=== PATIENT | female | born 1970 | race Caucasian/White ===

== ENCOUNTER 2023-11-18 15:29 | Emergency (ER) | payer OTHER, SELFPAY ==
[2023-11-18 15:32] VITALS: BP 122/75
--- NOTE | 2023-11-18 16:39 | ED.GENMED ---
History of Present Illness
General
Chief Complaint: Headache
Source: patient
Exam Limitations: none
Time Seen by Provider: 11/18/23 16:02
Nursing documentation reviewed up to this point in time: agreed with
History of Present Illness
History of Present Illness:
Patient is a 53-year-old female with past medical history of Chiari malformation small brain aneurysm presents to the ER for evaluation. Patient reports on Thursday she has had a persistent left-sided temporal headache. She reports it is constantly
there in general but it does intensify. Because it has been persistent since Thursday and this is not her typical headaches she was sent by her family doctor. She reports she was diagnosed with Chiari malformation and had a neurosurgeon at [facility] [facility].
She had decompression surgery back in 2018. She has not seen her surgeon since then and does not have a neurologist. Since having the surgery she still get headaches but they are better than prior to having surgery. Normally her headaches
related to the Chiari malformation are to posterior occiput and this is a new type of headache for her. She feels a little lightheaded with headaches very mildly nauseous with a headache. She has noticed over the past several days that her vision
is mildly blurry at times she feels that she has to strain more to read words on a computer.
Currently she feels that the pain is just mild and dull.
Review of Systems
Review of Systems
Allergies reviewed?: Yes
All Other Systems: ROS reviewed and negative except as documented in HPI and ROS
Constitutional: Reports no symptoms; Denies fever, fatigue or chills
EENT: Reports no symptoms
Respiratory: Reports no symptoms
Cardiac: Reports no symptoms
ABD/GI: Reports nausea; Denies vomiting
Musculoskeletal: Reports no symptoms
Skin: Reports no symptoms
Neurological: Reports headache ( left sided headache ); Denies dizzy or weakness
Hematologic/Lymphatic: Reports no symptoms
Psychiatric: Reports no symptoms
Phy Exam
General Physical Exam
General Presentation: no apparent distress
General age: appears stated age
General Skin: warm and dry
General Habitus: normal
General Mental: alert
General Hydration: appears well hydrated
ENT Exam
ENT Exam: EOMI and neck supple
Eye Exam
Eye Exam: PERRL and EOMI
Eye Exam General: PERRL: bilateral and EOM intact: bilateral
Pupil Exam: Bilateral: round and reactive
Neurological Exam
Neurological Exam: alert, oriented x3, no motor deficits and no sensory deficits
Sonny Coma Scale
Eye Opening: Spontaneous
Verbal Response: Oriented
Motor Response: Obeys Commands
GCS Total Score: 15
Cerebellar
Cerebellar Function: normal finger to nose
Musculoskeletal Exam
Musculoskeletal Exam: full ROM
Skin Exam
Skin Exam: normal color and warm/dry
Psychiatric Exam
Psychiatric Exam: normal mood/affect
Course
Orders/Labs/Results
Orders:
Orders
11/18/23 16:38
CT Head W/o Iv Contrast Urgent
Comment:
Reason For Exam: left sided temporal headache
Vital Signs
Initial and Last Documented VS:
Initial Vital Signs
Temp Pulse Resp BP Pulse Ox
99.3 F 77 18 122/75 96
11/18/23 15:32 11/18/23 15:32 11/18/23 15:32 11/18/23 15:32 11/18/23 15:32
Last Documented Vital Signs
Temp Pulse Resp BP Pulse Ox
99.3 F 68 16 118/69 99
11/18/23 15:32 11/18/23 17:56 11/18/23 17:56 11/18/23 17:56 11/18/23 17:56
Tire Recapping Machine Operator consulted with Physician
Tire Recapping Machine Operator consulted with physician?: Yes
Name of Physician Consulted: Dr العراقي
MDM/Problems Addressed
Differential Diagnosis Includes:
not limited to: headache
MDM/Problems Addressed:
Patient is a 53-year-old female with known Chiari malformation had decompressive surgery several years ago also reports was diagnosed with small aneurysm several years ago presented to the ER with left-sided headache. She reports her neurosurgeon
did not feel that aneurysm needed any type of surgery. She no longer needs to see a neurosurgeon she presented here because of continued persistent dull left-sided headache over temporal area for the past several days.
She presents awake alert no acute distress no associated fevers normal neurologic exam. Headache on the left temporal area is mostly dull she reports 3 out of 10 now . It does intensify in nature at times. she was sent by her family doctor for
evaluation imaging. CAT scan done today and negative for acute findings CAT scan that shows stable Chiari I malformation. I did review patient's prior MRA from 2022 which is negative for significant stenosis or aneurysm t.here was re-
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
This is reassuring. She is appears no acute distress and is very well-appearing she has on her computer.
Normal neurologic exam no evidence of meningismus. She is nontender over her temporal artery. not consistent w/ temporal arteritis . Case discussed ED physician will hold off on any additional imaging. Patient is comfortable with plan of care
will discharge with close outpatient follow-up with family doctor as well as neurology since she has not had a neurologist since being seen by her neurosurgeon in the past
*Radiology
Radiology exam reviewed: radiology read reviewed and other (MRA pauma of [place] 2022: Shows redemonstration of minimally prominent infumdibulum/curvature of the proximal left ophthalmic artery stable in appearance from prior no discrete aneurysm)
*Critical Care Note
Total Time (30-74mins, 75-104mins- exclusive of procedures): Not Applicable
Data Reviewed
Review of Other/Old Records Reveals: Radiology Studies (prior MRA )
ED Attending Note
-
Portions of this chart may have been created with voice recognition software.� Occasional wrong word or��sound alike� substitutions may have occurred due to the inherent limitations of voice recognition software.
Discharge Plan
Departure
Patient Disposition: Home (Routine Discharge)
Date of Disposition: 11/18/23
Time of Disposition: 18:05
Patient with high blood pressure during this ER visit?: No
Condition: Fair
Covid-19: Not Applicable
Discharge Problem:
Headache
Instructions: Headache, Adult (DC)
Referrals:
Lorrie Valencia PA-C [Family Provider] -
Clari Bob DO [Active] -
Activity Restrictions/Additional Instructions:
Follow-up with neurology as discussed. Call tomorrow to make an appointment
In addition follow-up with family doctor in next several days to ensure resolution of symptoms and return if any worsening of symptoms.
Interventions
Interventions:
*Risk Screen - Suicide Last Done: 11/18/23 16:54
*General Assessment Last Done: 11/18/23 16:54
*Neglect/Abuse Screening Last Done: 11/18/23 16:54
ED- Fall Risk Assessment Last Done: 11/18/23 16:54
ED- Neurological Assessment Last Done: 11/18/23 16:54
Discharge Date and Time
Print Language: SLOVENIAN
[2023-11-18 17:56] VITALS: BP 118/69
== END 2023-11-18 18:16 | disposition home or self-care (01) ==
LOC: EMR 15:29
PROVIDERS: EMERGENCY PHYSICIAN Emergency Medicine; FAMILY PHYSICIAN Student in an Organized Health Care Education/Training Program
DX: R51.9 Headache, unspecified (principal)
CPT/HCPCS: 99284; 70450

== ENCOUNTER → 2024-01-20 15:59 | Outpatient (REF) | payer OTHER, SELFPAY | LOC: WDC 15:59 | PROVIDERS: ATTENDING PHYSICIAN Physician Assistant Medical; REFERRING PHYSICIAN Obstetrics & Gynecology | DX: Z12.31 Encounter for screening mammogram for malignant neoplasm of breast (principal) | CPT/HCPCS: 77063; 77067 ==